=== PATIENT | female | born 1970 | race Caucasian/White ===

== ENCOUNTER 2018-02-02 11:24 | Emergency (ER) | payer OTHER ==
[~2018-02-02] VITALS: Ht 162.6 cm; Wt 133.4 kg
[~2018-02-02 11:24] MED LIST: ENALAPRIL MALEA10 MG NGT
[2018-02-02] MEDS ORDERED: METOPROLOL ER-1 EAC1 (11:30)
[2018-02-02] MEDS ORDERED: RESTORIL7.5 MG (11:31)
[2018-02-02] MEDS ORDERED: CLONAZEPAM2 MG (11:31)
[2018-02-02] MEDS ORDERED: PROZAC10 MG (11:31)
== END 2018-02-02 13:42 | disposition home or self-care (01) ==
LOC: ER 11:24
DX: G43.809 Other migraine, not intractable, without status migrainosus (principal)

== ENCOUNTER 2018-06-13 09:09 | Emergency (ER) | payer OTHER ==
[~2018-06-13] VITALS: Ht 162.6 cm; Wt 134.7 kg
[~2018-06-13 09:09] MED LIST changes: +CLONAZEPAM2 MG; +METOPROLOL ER-1 EAC1; +PROZAC10 MG; +RESTORIL7.5 MG
[2018-06-13] MEDS ORDERED: WELLBUTRIN XL300 MG PO (09:29)
[2018-06-13] MEDS ORDERED: COZAAR50 MG PO (09:30)
[2018-06-13] MEDS ORDERED: COZAAR25 MG PO (09:30)
[2018-06-13] MEDS ORDERED: HYDROCHLOROTHIA25 MG PO (09:31)
[2018-06-13] MEDS ORDERED: TUSSI PRES-B L120 M1 PO (11:25)
[2018-06-13] MEDS ORDERED: ZITHROMAX TRI-500 MG PO (11:25)
== END 2018-06-13 12:25 | disposition home or self-care (01) ==
LOC: ER 09:09
DX: B34.9 Viral infection, unspecified (principal)

== ENCOUNTER 2018-07-17 13:18 | Emergency (ER) | payer OTHER ==
[~2018-07-17] VITALS: Ht 162.6 cm; Wt 134.7 kg
[~2018-07-17 13:18] MED LIST changes: +COZAAR25 MG PO; +COZAAR50 MG PO; +HYDROCHLOROTHIA25 MG PO; +TUSSI PRES-B L120 M1 PO; +WELLBUTRIN XL300 MG PO; +ZITHROMAX TRI-500 MG PO
== END 2018-07-17 21:17 | disposition home or self-care (01) ==
LOC: ER 13:18
DX: S83.8X1A Sprain of other specified parts of right knee, initial encounter (principal); X50.9XXA Other and unspecified overexertion or strenuous movements or postures, initial encounter; Y93.89 Activity, other specified; Y92.098 Other place in other non-institutional residence as the place of occurrence of the external cause; Y99.8 Other external cause status

== ENCOUNTER → 2019-02-01 10:35 | Outpatient (CLI) | payer OTHER | END | disposition home or self-care (01) | LOC: LAB 10:35 | DX: R09.02 Hypoxemia (principal) ==

== ENCOUNTER → 2022-06-30 | Emergency (ER) | payer OTHER ==
[~2022-06-30] VITALS: Ht 160 cm; Wt 83.9 kg
[~2022-06-30] MED LIST changes: +MEDROLPACK PO; +TUSNEL DM LIQU473 ML PO
== END | disposition home or self-care (01) ==
LOC: ER 13:27
DX: J44.1 Chronic obstructive pulmonary disease with (acute) exacerbation (principal); Z91.018 Allergy to other foods; Z86.16 Personal history of COVID-19